=== PATIENT | male | born 1970 | race Caucasian/White ===

== ENCOUNTER 2017-02-02 12:25 | Outpatient (CLI) | payer OTHER ==
--- NOTE | 2017-02-02 15:18 | MRI Report ---
EXAM: RIGHT KNEE MRI WITHOUT CONTRAST EXAM DATE: 02/02/2017 01:09 p.m. CLINICAL HISTORY: Right knee pain. COMPARISON: Radiographs 01/24/2017. TECHNIQUE: Multiplanar, multisequence T1-weighted and fluid-sensitive sequences of the knee without c ontrast. Other: None. FINDINGS: Cruciate ligaments: Anterior and posterior cruciate ligaments appear intact. Medial meniscus: Intact. No tear is identified. Lateral meniscus: Intact. No tear is identified. Collateral ligaments: The medial and fibular collateral ligaments appear intact. Bones and articular surfaces: Focal 1 x 4 mm near full-thickness cartilage fissure or defect within t he weight-bearing medial femoral condyle with prominent associated subchondral edema. Mild cartilage thinning, fissuring and irregularity in the patellofemoral compartment. Slight degree of cartilage fi ssuring at the posterior weight-bearing aspect of the lateral compartment. Extensor mechanism: The patellar tendon and quadriceps insertion appear intact. IMPRESSION: 1. Focal area of prominent cartilage fissuring and partial-thickness defect at the medial femoral con dyle with prominent associated focal subchondral marrow edema. 2. Otherwise, mild tricompartmental degenerative cartilage changes with no additional significant def ects. 3. The menisci, cruciate and collateral ligaments appear intact. [facility] MUSCULOSKELET[facility]IOLOGY SECTION Referring Provider Line: [phone] SITE ID: [id number]
== END 2017-02-02 12:26 | disposition home or self-care (01) ==
LOC: DI 12:25
PROVIDERS: ATTEND Family Medicine
DX: M25.561 Pain in right knee (principal); M23.91 Unspecified internal derangement of right knee

== ENCOUNTER 2017-11-12 08:00 | Outpatient (CLI) | payer OTHER ==
[2017-11-12 12:49] LABS: ALBUMIN 4.2 g/dL (3.2-5.5); ALBUMIN/GLOBULIN RATIO 1.4 (1.0-2.2); ALKALINE PHOSPHATASE 50 IU/L (42-121); ALT ALANINE AMINOTRANSFERASE 36 IU/L (10-60); AST ASPARTATE AMINOTRANSFERASE 41 IU/L (10-42); BUN - BLOOD UREA NITROGEN 16 mg/dL (6-20); CARBON DIOXIDE - CO2 27 mmol/L (21-32); CHLORIDE 102 mmol/L (101-111); CHOL/HDL RATIO 5.7 (<5.0); CHOLESTEROL 256 mg/dL; CREATININE 1.1 mg/dL (0.6-1.2); GFR - MDRD 72 (>89); GLUCOSE 100 mg/dL (70-100); HDL CHOLESTEROL 45 mg/dL; LDL CHOLESTEROL,CALCULATED 176 mg/dL; LDL/HDL RATIO 3.9 (<3.6); SODIUM 137 mmol/L (135-145); TOTAL PROTEIN 7.1 g/dL (6.7-8.2); VLDL CHOLESTEROL 35 mg/dL
== END 2017-11-12 08:01 | disposition home or self-care (01) ==
LOC: LAB.WCP 08:00
PROVIDERS: ATTEND Family Medicine
DX: E78.5 Hyperlipidemia, unspecified (principal); Z12.5 Encounter for screening for malignant neoplasm of prostate
CPT/HCPCS: 36415; 80053; 80061; 83721; 84153

== ENCOUNTER 2019-05-29 08:00 | Outpatient (CLI) | payer OTHER | END 2019-05-29 23:59 | disposition home or self-care (01) | LOC: LAB.R 08:00 | PROVIDERS: ATTEND Family Medicine | DX: R05 Cough (principal) | CPT/HCPCS: 87275; 87276 ==

== ENCOUNTER 2019-05-29 15:29 | Outpatient (CLI) | payer OTHER ==
--- NOTE | 2019-05-31 00:47 | XRAY Report ---
Reason: PRODUCTIVE COUGH PURULENT SPUTUM Procedure Date: 05/29/2019 Accession Number: [id number] / [id number] Procedure: WCP - Chest 2 View X-Ray CPT Code: 34955 Final Report FULL RESULT: EXAM: CHEST RADIOGRAPHY EXAM DATE: 05/29/2019 03:29 PM. CLINICAL HISTORY: PRODUCTIVE COUGH PURULENT SPUTUM. COMPARISON: 05/06/2015 11:16 AM. TECHNIQUE: 2 views. FINDINGS: Lungs/Pleura: No focal opacities evident. No pleural effusion. No pneumothorax. Normal volumes. Mediastinum: Heart and mediastinal contours are unremarkable. Other: None. IMPRESSION: Normal 2-view chest radiography. [facility]
== END 2019-05-29 23:59 | disposition home or self-care (01) ==
LOC: DI.WCP 15:29
PROVIDERS: ATTEND Family Medicine
DX: R05 Cough (principal)
CPT/HCPCS: 71046; 87275; 87276

== ENCOUNTER 2021-01-31 08:00 | Outpatient (CLI) | payer OTHER ==
[2021-01-31 12:11] LABS: BASOPHILS % (AUTO) 0.7 %; EOSINOPHILS # (AUTO) 0.1 10^3/uL (0.0-0.7); EOSINOPHILS % (AUTO) 2.4 %; HCT - HEMATOCRIT 46.8 % (42.0-52.0); HGB - HEMOGLOBIN 15.9 g/dL (14.0-18.0); LYMPHOCYTES # (AUTO) 1.7 10^3/uL (1.5-3.5); LYMPHOCYTES % (AUTO) 29.8 %; MEAN CORPUSCULAR HEMOGLOBIN 30.6 pg (27.0-31.0); MEAN PLATELET VOLUME 9.8 fL (7.4-11.4); MONOCYTES # (AUTO) 0.6 10^3/uL (0.0-1.0); MONOCYTES % (AUTO) 10.1 %; NEUTROPHILS # (AUTO) 3.2 10^3/uL (1.5-6.6); NEUTROPHILS % (AUTO) 56.5 %; PLT - PLATELET COUNT 265 10^3/uL (130-450); WHITE BLOOD COUNT 5.7 x10^3/uL (4.8-10.8)
[2021-01-31 12:27] LABS: BILIRUBIN,URINE NEGATIVE (NEGATIVE); GLUCOSE, URINE (UA) NEGATIVE (NEGATIVE); KETONES,URINE (UA) NEGATIVE (NEGATIVE); LEUKOCYTE ESTERASE, URINE NEGATIVE (NEGATIVE); NITRITE,URINE NEGATIVE (NEGATIVE); OCCULT BLOOD,URINE NEGATIVE (NEGATIVE); PROTEIN,URINE NEGATIVE (NEGATIVE); UROBILINOGEN,URINE 0.2 (NORMAL) E.U./dL (NORMAL)
[2021-01-31 12:28] LABS: CLARITY,URINE CLEAR (CLEAR)
[2021-01-31 12:36] LABS: WBC,URINE 0-3 /HPF (0-3)
[2021-01-31 12:37] LABS: BACTERIA,URINE Rare /HPF (None Seen); RBC,URINE None Seen /HPF (0-5); SQUAMOUS EPITHELIAL CELL,UR NONE SEEN (<= Few)
[2021-01-31 12:48] LABS: ALBUMIN 4.3 g/dL (3.2-5.5); ALBUMIN/GLOBULIN RATIO 1.7 (1.0-2.2); ALKALINE PHOSPHATASE 50 IU/L (42-121); ALT ALANINE AMINOTRANSFERASE 42 IU/L (10-60); AST ASPARTATE AMINOTRANSFERASE 33 IU/L (10-42); BILIRUBIN,TOTAL 0.7 mg/dL (0.2-1.0); BUN - BLOOD UREA NITROGEN 17 mg/dL (6-20); CALCIUM 9.3 mg/dL (8.5-10.3); CARBON DIOXIDE - CO2 26 mmol/L (21-32); CHLORIDE 105 mmol/L (101-111); CHOL/HDL RATIO 6.9 (<5.0); CHOLESTEROL 310 mg/dL; GFR - MDRD 79 (>89); GLUCOSE 97 mg/dL (70-100); HDL CHOLESTEROL 45 mg/dL; SODIUM 139 mmol/L (135-145); TOTAL PROTEIN 6.9 g/dL (6.7-8.2); TRIGLYCERIDES 493 mg/dL
[2021-01-31 12:52] LABS: THYROID STIMULATING HORMONE 2.5 uIU/mL (0.34-5.60)
[2021-01-31 13:55] LABS: LDL CHOLESTEROL,DIRECT 145 mg/dL; LDLD/HDL RATIO 3.2 (<3.6)
== END 2021-01-31 23:59 | disposition home or self-care (01) ==
LOC: LAB.WCP 08:00
PROVIDERS: ATTEND Nurse Practitioner
DX: R53.83 Other fatigue (principal); E78.5 Hyperlipidemia, unspecified
CPT/HCPCS: 36415; 80053; 80061; 81001; 82306; 82607; 83721; 84403; 84443; 85025; 87086

== ENCOUNTER 2021-01-31 12:39 | Outpatient (CLI) | payer OTHER ==
[2021-01-31] MEDS ORDERED: IOPAMIDOL-300 100 ML VIAL ONE (13:53)
[2021-01-31] MEDS ORDERED: IOPAMIDOL-300 100 ML VIAL IVP ONE (14:02)
--- NOTE | 2021-01-31 14:14 | CT Report ---
PROCEDURE: ANGIO HEAD W/WO INDICATIONS: CHRONIC RHINOSINUSITIS, TIA CONTRAST: IV CONTRAST: Isovue 300 ml: 80 PO CONTRAST: *NO PO CONTRAST TECHNIQUE: Precontrast 4.5 mm thick angled axial sections acquired from the foramen magnum to the vertex. Afte r the administration of intravenous contrast, 1 mm thick sections acquired through the [place] of [place] is. Postcontrast 4.5 mm thick sections then re-acquired from the foramen magnum to the vertex. 3-di mensional igaqgjw-vvdniycdf-tdlzigpojd (MIP) and/or volume rendering reformats were acquired of the c entral intracranial vasculature. For radiation dose reduction, the following was used: automated ex posure control, adjustment of mA and/or kV according to patient size. COMPARISON: No pertinent prior study. FINDINGS: Image quality: Excellent. Anterior circulation: Intracranial internal carotid arteries are normal in size and flow. The flow within the paired anterior cerebral arteries is normal and symmetric. The flow within the middle cer ebral arteries is normal and symmetric. The anterior communicating artery is seen. No aneurysms are seen. Posterior circulation: Visualized portions of the vertebral arteries demonstrate normal caliber, and join to form a normal appearing basilar artery. Flow within the posterior cerebral arteries is norm al and symmetric. No aneurysms are seen. CSF spaces: Ventricles are normal in size and shape. Basal cisterns are patent. No extra-axial flu id collections. Brain: No midline shift. No intracranial bleeds or masses. Ruiz-white matter interface appears int act. Skull and face: Calvarium and facial bones appear intact, without suspicious lesions. Sinuses: Visualized sinuses and mastoids are predominantly clear. There is a small mucous retention cyst in the right sphenoid sinus. Post-surgical changes of bilateral maxillary sinus medial antrosto mies and uncinectomies. IMPRESSION: No hemodynamically significant intracranial arterial stenosis. No findings of acute or chronic sinusitis. Reviewed by: Malcom Medrano MD on 01/31/2021 2:12 PM PDT Approved by: Malcom Medrano MD on 01/31/2021 2:12 PM PDT Station ID: [id number]
== END 2021-01-31 12:40 | disposition home or self-care (01) ==
LOC: DI 12:39
PROVIDERS: ATTEND Nurse Practitioner
DX: G45.9 Transient cerebral ischemic attack, unspecified (principal)
CPT/HCPCS: 70496; Q9967

== ENCOUNTER 2021-07-18 07:52 | Outpatient (CLI) | payer OTHER ==
--- NOTE | 2021-07-18 10:28 | Ultrasound Report ---
PROCEDURE: Carotid Doppler Complete INDICATIONS: TIA TECHNIQUE: Color and pulse Doppler interrogation was performed of both carotid systems, with image documentation and velocity measurements. COMPARISON: None. FINDINGS: Right side: Brachial blood pressure: 138/81 mm Hg. Common carotid artery peak systolic velocity: 103 cm/sec. Internal carotid artery peak systolic velocity: 107 cm/sec. Internal carotid artery end diastolic velocity: 55 cm/sec. External carotid artery peak systolic velocity: 122 cm/sec. ICA/CCA peak systolic ratio: 1.04 . Ruiz scale imaging description: Mild calcified atherosclerotic plaque. Percent internal carotid artery stenosis: Less than 50% . Vertebral artery: Flow direction is antegrade. Left side: Brachial blood pressure: 132/76 mm Hg. Common carotid artery peak systolic velocity: 83 cm/sec. Internal carotid artery peak systolic velocity: 118 cm/sec. Internal carotid artery end diastolic velocity: 55 cm/sec. External carotid artery peak systolic velocity: 125 cm/sec. ICA/CCA peak systolic ratio: 1.42 . Ruiz scale imaging description: Mild calcified atherosclerotic plaque. Percent internal carotid artery stenosis: Less than 50% . Vertebral artery: Flow direction is antegrade. IMPRESSION: Less than 50% stenosis of the bilateral internal carotid arteries. The estimate of stenosis included in the report of the imaging study was calculated using the NASCET method Reviewed by: Pollo Franco MD on 07/18/2021 10:26 AM PST Approved by: Pollo Franco MD on 07/18/2021 10:26 AM PST Station ID: [id number]
== END 2021-07-18 07:53 | disposition home or self-care (01) ==
LOC: DI 07:52
PROVIDERS: ATTEND Nurse Practitioner
DX: G45.9 Transient cerebral ischemic attack, unspecified (principal)
CPT/HCPCS: 93880